=== PATIENT | male | born 2000 | race Caucasian/White ===

== ENCOUNTER 2018-07-26 11:26 | Emergency (ER) | payer BC ==
[2018-07-26] MEDS ORDERED: Diphtheria,Pertussis(Acell),Tetanus Vaccine 0.5 ML Syringe IM ONE (11:46)
--- NOTE | 2018-07-26 11:58 | EDM.PDOC ---
ED HPI GENERAL MEDICAL PROBLEM - General Chief Complaint: Laceration Stated Complaint: FISH HOOK IN FINGER Time Seen by Provider: 07/26/18 11:30 Source of Information: Reports: Patient, Family History Limitations: Reports: No Limitations - History of Present Illness INITIAL COMMENTS - FREE TEXT/NARRATIVE: Pt. has a treble hook from a fishing lure lodged in the dorsum of his L index finger in area of PIP joint. He states that he has intermittent paresthesia in the finger when the hook is manipulated. He states that his tetanus is not up to date. He states that this happened just before coming to ER. Denies any injury elsewhere. Onset: Today Location: Reports: Upper Extremity, Left Quality: Reports: Sharp, Stabbing Severity: Moderate - Related Data Allergies Allergy/AdvReac Type Severity Reaction Status Date / Time No Known Drug Allergies Allergy Other Verified 09/02/16 17:45 Home Meds: Home Meds Cetirizine [ZyrTEC] 10 mg PO DAILY PRN 09/02/16 [History] Past Medical History - Past Health History Medical/Surgical History: Denies Medical/Surgical History Social & Family History - Caffeine Use Caffeine Use: Reports: Soda ED ROS GENERAL - Review of Systems Review Of Systems: See Below Musculoskeletal: Reports: Other (see above-pain to L index finger) Skin: Reports: No Symptoms ED EXAM, SKIN/RASH Exam: See Below Exam Limited By: No Limitations General Appearance: Alert, WD/WN, No Apparent Distress Extremities: Other (treble hook is noted to L dorsal index finger. It is located more on the medial aspect of the joint. ROM post removal diminished at this point, possibly due to the amount of lidocaine injected in area.) ED SKIN PROCEDURES - Foreign Body Removal Consent Obtained:: Patient Performing Doctor:: Ahmet Cummins Foreign Body Other Location Comment:: L dorsal index finger in area of medial PIP joint Anesthesia Type: Local (3 ml 1% lidocaine) Complications:: No Comments:: the lure was first removed, and the 2 other hooks were then removed to facilitate rapid and safe removal. Decision was made to directly retract the hook as it was deep within the finger past the jeffrey, so as to not further injure the nerves or other structures of the finger. This was performed using sterile technique. A total of 3 ml of 1% lido was used for anesthesia. Course - Orders/Labs/Meds Orders: Active Orders 24 hr Category Date Time Status Vaccines to be Administered [RC] PER UNIT ROUTINE Care 07/26/18 11:47 Active Meds: Medications Discontinued Medications Generic Name Dose Route Start Last Admin Trade Name Malgorzata PRN Reason Stop Dose Admin Diphtheria/Tetanus/Acell Pertussis 0.5 ml 07/26/18 11:46 Adacel IM 07/26/18 11:47 .ONCE ONE Lidocaine HCl 5 ml 07/26/18 11:32 Xylocaine-Mpf 1% INJECT 07/26/18 11:33 ONETIME ONE Departure - Departure Time of Disposition: 11:50 Disposition: Home, Self-Care 01 Clinical Impression: Removal of foreign body, Puncture wound - injury - Discharge Information Instructions: Hand or Foot Foreign Body, Adult Referrals: PCP,Not In Area [Primary Care Provider] - Additional Instructions: Augmentin 875mg 1 twice daily for 7 days Wear bandage today. When it is no longer actively bleeding, keep open to air as much as possible. Keep area dry today. Return to ER of clinic if there is any redness, swelling, or discharge from the area. - My Orders Last 24 Hours: My Active Orders 07/26/18 11:47 Vaccines to be Administered [RC] PER UNIT ROUTINE - Assessment/Plan Last 24 Hours: My Active Orders 07/26/18 11:47 Vaccines to be Administered [RC] PER UNIT ROUTINE Plan: Augmentin 875mg 1 twice daily for 7 days Wear bandage today. When it is no longer actively bleeding, keep open to air as much as possible. Keep area dry today. Return to ER of clinic if there is any redness, swelling, or discharge from the area.
[2018-07-26 12:14] VITALS: BP 123/75
== END 2018-07-26 11:59 | disposition home or self-care (01) ==
LOC: VM.ED 11:26
DX: S61.241A Puncture wound with foreign body of left index finger without damage to nail, initial encounter (principal); W45.8XXA Other foreign body or object entering through skin, initial encounter; Z79.899 Other long term (current) drug therapy; Z23 Encounter for immunization
CPT/HCPCS: 90471; 90715; 96372; 99283; J2001